=== PATIENT | male | born 1965 | race Caucasian/White ===

== ENCOUNTER → 2020-11-22 | Outpatient (CLI) | payer OTHER ==
[~2020-11-22] MED LIST: ASPIR 8181 MG PO; ATORVASTATIN CA20 MG PO; CEPHALEXIN500 MG PO; CLARITIN10 M2 PO; COQ1050 MG PO; COREG 25MG TAB25 MG PO; LISINOPRIL5 MG PO; NITROGLYCERIN0.4 MG SL; OMEGA 3 1,0001 EACH PO; VITAMIN C1000 MG PO
== END ==
LOC: RAD 12:06
DX: R07.9 Chest pain, unspecified (principal); M54.9 Dorsalgia, unspecified; J43.9 Emphysema, unspecified
CPT/HCPCS: 71046

== ENCOUNTER → 2020-12-27 | Outpatient (CLI) | payer OTHER | LOC: KOH-I 10:30 | DX: F17.210 Nicotine dependence, cigarettes, uncomplicated (principal); R91.8 Other nonspecific abnormal finding of lung field | CPT/HCPCS: 71271 ==

== ENCOUNTER → 2021-03-12 | Outpatient (CLI) | payer OTHER ==
[~2021-03-12] MED LIST changes: +ALLERGY RELIEF4 MG PO; +REMERON 15 MG T15 MG PO; +SINGULAIR10 MG PO
[2021-03-12 16:24] LABS: BUN/CREATININE RATIO 15 (0-10)
== END ==
LOC: LAB 14:53
PROVIDERS: Nurse Practitioner Family
DX: E78.5 Hyperlipidemia, unspecified (principal)
CPT/HCPCS: 80048

== ENCOUNTER 2021-03-23 20:14 | Emergency (ER) | payer OTHER ==
[~2021-03-23 20:14] MED LIST changes: -ALLERGY RELIEF4 MG PO; -REMERON 15 MG T15 MG PO; -SINGULAIR10 MG PO
[2021-04-12] MEDS ORDERED: ALLERGY RELIEF4 MG PO (07:30)
[2021-04-12] MEDS ORDERED: SINGULAIR10 MG PO (07:31)
[2021-04-12] MEDS ORDERED: REMERON 15 MG T15 MG PO (07:31)
== END 2021-03-23 22:11 | disposition left against medical advice (07) ==
LOC: ER1 20:14
DX: Z53.21 Procedure and treatment not carried out due to patient leaving prior to being seen by health care provider (principal)

== ENCOUNTER → 2021-03-28 | Outpatient (CLI) | payer OTHER ==
[~2021-03-28] MED LIST changes: +ALLERGY RELIEF4 MG PO; +REMERON 15 MG T15 MG PO; +SINGULAIR10 MG PO
== END ==
LOC: EXRD 13:18
DX: M25.542 Pain in joints of left hand (principal); M25.541 Pain in joints of right hand; R76.8 Other specified abnormal immunological findings in serum; M19.042 Primary osteoarthritis, left hand; M19.041 Primary osteoarthritis, right hand
CPT/HCPCS: 73130

== ENCOUNTER → 2021-04-12 | Day surgery (SDC) | payer OTHER | END | disposition home or self-care (01) | LOC: OR 06:24 | DX: Z12.11 Encounter for screening for malignant neoplasm of colon (principal); D12.5 Benign neoplasm of sigmoid colon; I25.10 Atherosclerotic heart disease of native coronary artery without angina pectoris; I10 Essential (primary) hypertension; J43.9 Emphysema, unspecified; J30.9 Allergic rhinitis, unspecified; F41.9 Anxiety disorder, unspecified; F32.9 Major depressive disorder, single episode, unspecified; R53.82 Chronic fatigue, unspecified; G89.29 Other chronic pain; E55.9 Vitamin D deficiency, unspecified; E53.8 Deficiency of other specified B group vitamins; E87.5 Hyperkalemia; E78.5 Hyperlipidemia, unspecified; I25.2 Old myocardial infarction; M54.16 Radiculopathy, lumbar region; G47.00 Insomnia, unspecified; Z79.82 Long term (current) use of aspirin; F17.210 Nicotine dependence, cigarettes, uncomplicated; Z79.899 Other long term (current) drug therapy; Z20.822 Contact with and (suspected) exposure to COVID-19; Z86.010 Personal history of colon polyps; Z95.5 Presence of coronary angioplasty implant and graft; Z95.0 Presence of cardiac pacemaker | CPT/HCPCS: J2001; J2704; J7030 ==

== ENCOUNTER → 2021-04-22 | Outpatient (CLI) | payer OTHER | LOC: KOH-I 11:24 | DX: M54.2 Cervicalgia (principal); M47.812 Spondylosis without myelopathy or radiculopathy, cervical region | CPT/HCPCS: 72040 ==

== ENCOUNTER → 2021-05-01 | Outpatient (CLI) | payer OTHER | LOC: KOH-I 13:00 | DX: I65.23 Occlusion and stenosis of bilateral carotid arteries (principal); R93.89 Abnormal findings on diagnostic imaging of other specified body structures | CPT/HCPCS: 93880 ==

== ENCOUNTER → 2021-09-09 | Outpatient (CLI) | payer OTHER | LOC: HEART 5 07:16 | DX: I11.0 Hypertensive heart disease with heart failure (principal); I50.9 Heart failure, unspecified; E78.5 Hyperlipidemia, unspecified; R07.9 Chest pain, unspecified; R06.02 Shortness of breath; I48.0 Paroxysmal atrial fibrillation; I25.5 Ischemic cardiomyopathy | CPT/HCPCS: 78452; A9502; J2785 ==

== ENCOUNTER → 2021-09-12 | Outpatient (CLI) | payer OTHER ==
[2021-09-12 14:51] LABS: HEMOGLOBIN 15.5 gm/dl (14.0-17.5); RED BLOOD COUNT 4.88 M/UL (4.20-5.50)
== END ==
LOC: LAB 14:21
PROVIDERS: Nurse Practitioner Family
DX: R07.9 Chest pain, unspecified (principal); R06.02 Shortness of breath; R11.0 Nausea
CPT/HCPCS: 36415; 71046; 80053; 82150; 82550; 82552; 82553; 83615; 83625; 83690; 84484; 85025

== ENCOUNTER 2021-09-15 14:54 | Emergency (ER) | payer OTHER ==
[2021-09-15 16:43] LABS: RED BLOOD COUNT 4.33 M/UL (4.20-5.50); WHITE BLOOD COUNT 5.5 K/UL (4.5-11.0)
[2021-09-15 16:44] LABS: HEMOGLOBIN 13.3 gm/dl (14.0-17.5)
[2021-09-15 16:51] LABS: BUN/CREATININE RATIO 21 (0-10)
== END 2021-09-15 17:16 | disposition home or self-care (01) ==
LOC: ER1 14:54
PROVIDERS: Physician Assistant Medical
DX: I10 Essential (primary) hypertension (principal); Z90.49 Acquired absence of other specified parts of digestive tract
CPT/HCPCS: 80053; 85025; 99284; J7050

== ENCOUNTER → 2021-09-16 | Outpatient (CLI) | payer OTHER | LOC: EXRD 14:19 | DX: Z79.899 Other long term (current) drug therapy (principal) | CPT/HCPCS: 73564 ==

== ENCOUNTER → 2021-09-30 | Outpatient (CLI) | payer OTHER | LOC: HEART 5 12:57 | DX: R07.9 Chest pain, unspecified (principal); R00.2 Palpitations; R06.02 Shortness of breath; I27.20 Pulmonary hypertension, unspecified; I08.1 Rheumatic disorders of both mitral and tricuspid valves | CPT/HCPCS: 93306 ==

== ENCOUNTER → 2022-01-30 | Outpatient (CLI) | payer OTHER | LOC: KOH-I 14:14 | DX: F17.210 Nicotine dependence, cigarettes, uncomplicated (principal); R91.8 Other nonspecific abnormal finding of lung field; M54.16 Radiculopathy, lumbar region; R10.9 Unspecified abdominal pain | CPT/HCPCS: 71271 ==